=== PATIENT | male | born 1975 ===

== ENCOUNTER 2021-08-09 08:22 | Day surgery (SDC) | payer BC ==
[2021-08-08 15:08] VITALS: BMI 29.5
[2021-08-09 10:50] VITALS: TEMP 97.8
[2021-08-09 10:53] VITALS: BP 114/76; PULSE 68
== END 2021-08-09 10:35 | disposition home or self-care (01) ==
LOC: FASU-ENDO 08:22
PROVIDERS: ATTEND Internal Medicine Gastroenterology
PROC: 0DJD8ZZ Inspection of Lower Intestinal Tract, Via Natural or Artificial Opening Endoscopic (ICD-10-PCS; principal; 2021-08-09 09:33)
DX: Z12.11 Encounter for screening for malignant neoplasm of colon (principal)